=== PATIENT | female | born 1995 | race Native Hawaiian/Other Pacific Islander ===

== ENCOUNTER 2020-11-14 08:22 | Outpatient (CLI) | payer BC ==
[~2020-11-14 08:22] MED LIST: ADIPEX PO; HYDR25TA60 PO
[2020-11-14 09:20] LABS: POTASSIUM 4.7 mmol/L (3.6-5.2)
== END 2020-11-14 21:08 | disposition home or self-care (01) ==
LOC: LABW 08:22
PROVIDERS: ATTEND Nurse Practitioner Family
DX: E28.2 Polycystic ovarian syndrome (principal); E88.81 Metabolic syndrome and other insulin resistance; E66.9 Obesity, unspecified; E04.1 Nontoxic single thyroid nodule
CPT/HCPCS: 36415; 80053; 80061; 84443

== ENCOUNTER 2021-12-01 07:06 | Outpatient (CLI) | payer OTHER ==
[2021-12-01 08:00] LABS: POTASSIUM 4.1 mmol/L (3.6-5.2)
== END 2021-12-01 20:51 | disposition home or self-care (01) ==
LOC: LABW 07:06
PROVIDERS: ATTEND Nurse Practitioner Family
DX: E28.2 Polycystic ovarian syndrome (principal); E88.81 Metabolic syndrome and other insulin resistance; E66.9 Obesity, unspecified
CPT/HCPCS: 36415; 80053; 80061; 84443